=== PATIENT | male | born 1970 | race Caucasian/White ===

== ENCOUNTER 2017-11-15 22:29 | Emergency (ER) | payer BC, MEDICAID ==
[~2017-11-15] VITALS: Ht 172.7 cm; Wt 91.0 kg
[2017-11-15 22:47] LABS: MICROSCOPIC NOT IND
[2017-11-15 22:50] LABS: CULTURE INDICATED? NO
[2017-11-15] MEDS ORDERED: ZIPRASIDONE 20 MG INJ IM ONE (23:00)
[2017-11-15 23:19] LABS: AMPHETAMINE SCREEN, URINE Positive (Negative); BARBITURATE SCREEN, URINE Negative (Negative); BENZODIAZEPINE SCREEN, URINE Negative (Negative); CANNABINOID SCREEN, URINE Negative (Negative); COCAINE SCREEN, URINE Negative (Negative); METHADONE SCREEN, URINE Negative (Negative); OPIATE SCREEN, URINE Negative (Negative)
[2017-11-15 23:24] LABS: BASOPHILS # (AUTO) 0.09 x10^3/uL (0-0.1); BASOPHILS % (AUTO) 1 % (0-1); EOSINOPHILS # (AUTO) 0.24 x10^3/uL (0-0.4); EOSINOPHILS % (AUTO) 2 % (1-7); LYMPHOCYTES # (AUTO) 2.96 x10^3/uL (1-3.4); LYMPHOCYTES % (AUTO) 23 % (22-44); MD NO; MEAN CORPUSCULAR HEMOGLOBIN 29.2 pg (27.5-34.5); MEAN CORPUSCULAR HGB CONC 33.7 g/dL (33.2-36.2); MEAN CORPUSCULAR VOLUME 86.7 fL (81-97); MEAN PLATELET VOLUME 9.5 fL (7.4-10.4); MONOCYTES # (AUTO) 0.65 x10^3/uL (0.2-0.8); MONOCYTES % (AUTO) 5 % (2-9); NEUTROPHILS # (AUTO) 8.74 x10^3/uL (1.8-6.8); NEUTROPHILS % (AUTO) 69 % (42-75); PLATELET COUNT 221 x10^3/uL (130-400); RED BLOOD COUNT 5.49 x10^6/uL (4.38-5.82); RED CELL DISTRIBUTION WIDTH 13.2 % (9.4-14.8)
[2017-11-15] MEDS ORDERED: PLEASE ENTER ALLERGIES MC SCH (23:30)
[2017-11-15 23:36] LABS: ALANINE AMINOTRANSFERASE 54 U/L (12-78); ALBUMIN 3.8 g/dL (3.4-5.0); ANION GAP 8 mmol/L (5-15); CALCIUM 8.9 mg/dL (8.5-10.1); CHLORIDE 110 mmol/L (98-107); CREATININE 1.26 mg/dL (0.7-1.3)
[2017-11-15 23:38] LABS: ALKALINE PHOSPHATASE 84 U/L (45-117); BILIRUBIN,TOTAL 0.7 mg/dL (0.2-1.0); TOTAL PROTEIN 7.4 g/dL (6.4-8.2)
[2017-11-16] MEDS ORDERED: ZIPRASIDONE 20 MG INJ IM ONE (00:10)
[2017-11-16 01:02] VITALS: BP 110/92
== END 2017-11-16 01:09 | disposition home or self-care (01) ==
LOC: ED 11-16 01:03
DX: F15.129 Other stimulant abuse with intoxication, unspecified (principal); F41.1 Generalized anxiety disorder; G62.9 Polyneuropathy, unspecified; F20.9 Schizophrenia, unspecified; M54.9 Dorsalgia, unspecified; G89.29 Other chronic pain; Z91.14 Patient's other noncompliance with medication regimen; Z60.9 Problem related to social environment, unspecified; Z72.89 Other problems related to lifestyle
CPT/HCPCS: 36415; 80053; 80307; 81003; 85025; 96372; 99284; J3486

== ENCOUNTER 2018-02-02 21:09 | Emergency (ER) | payer BC, MEDICAID ==
[~2018-02-02] VITALS: Ht 172.7 cm; Wt 104.3 kg
[2018-02-02 23:54] VITALS: BP 155/96
== END 2018-02-03 00:41 | disposition home or self-care (01) ==
LOC: ED 22:50
DX: F41.1 Generalized anxiety disorder (principal); F15.10 Other stimulant abuse, uncomplicated; F41.0 Panic disorder [episodic paroxysmal anxiety]; G62.9 Polyneuropathy, unspecified; G89.29 Other chronic pain; Z87.891 Personal history of nicotine dependence
CPT/HCPCS: 99284; Q0177